=== PATIENT | female | born 1990 | race Caucasian/White ===

== ENCOUNTER 2017-01-23 19:30 | Inpatient (IN) | payer BC, MEDICAID ==
[2017-01-23 19:30] VITALS: BMI 30.9
--- NOTE | 2017-01-23 21:28 | ED PDOC ---
HPI: General Adult Time Seen by Provider: 01/23/17 20:19 Chief Complaint (Nursing): Flu-like Symptoms Chief Complaint (Provider): Numbness and Tingling in Hands and feet History Per: Patient History/Exam Limitations: no limitations Onset/Duration Of Symptoms: Other (1 month) Have you had recent travel within the past 21 days to any of the following countries: [place], [place], [place] or [place]?: No Current Symptoms Are (Timing): Still Present Additional Complaint(s): Emma Pagan, a 26 year old female, who has a past medical history of lyme disease presents to the ED complaining of numbness and tingling in her hands and feet x1 month. The patient states that she has been feeling fatigue and body aches for the past month. She further reports that in August she was diagnosed with lyme disease and was prescribed doxycycline but she had to stop taking it because of an allergic reaction the medication. The patient then states that she was started on a 20 day course of cefuroxime, but still has the symptoms that she previously mentioned. She states that she has had palpitations in the past but isn't experiencing any now. Denies headache, weakness and fever but does report having chills. Of note: Patient had a serological lyme test done in January which shows that she is still actively has the infection and IGM antibodies positive. Past Medical History Reviewed: Historical Data, Nursing Documentation, Vital Signs Vital Signs: Last Vital Signs Temp 98.9 F 01/27/17 16:29 Pulse 92 H 01/27/17 16:29 Resp 18 01/27/17 16:29 BP 102/82 01/27/17 16:29 Pulse Ox 99 01/27/17 16:29 - Medical History PMH: Anemia, Hypothyroidism Denies: Depression Other PMH: Lyme Disease - Surgical History Surgical History: No Surg Hx - Family History Family History: States: Unknown Family Hx - Immunization History Hx Tetanus Toxoid Vaccination: Yes Hx Influenza Vaccination: No Hx Pneumococcal Vaccination: No - Home Medications Home Medications: Ambulatory Orders Medication Instructions Recorded Levothyroxine [Synthroid] 75 mcg PO DAILY 09/26/15 Gabapentin [Neurontin] 100 mg PO BID #30 cap 01/27/17 valACYclovir [Valtrex] 500 mg PO BID #28 tab 01/27/17 - Allergies Allergies/Adverse Reactions: Allergies Allergy/AdvReac Type Severity Reaction Status Date / Time doxycycline Allergy Intermediate SHORTNESS Verified 01/23/17 19:43 OF BREATH Review of Systems Constitutional: Positive for: Chills. Negative for: Fever Neurological: Positive for: Numbness (Numbness in hands and feet.). Negative for: Weakness, Headache Physical Exam - Reviewed Nursing Documentation Reviewed: Yes Vital Signs Reviewed: Yes - Physical Exam Appears: Positive for: Non-toxic, No Acute Distress Head Exam: Positive for: ATRAUMATIC, NORMAL INSPECTION, NORMOCEPHALIC Skin: Positive for: Normal Color, Warm, Dry Eye Exam: Positive for: Normal appearance, EOMI, PERRL ENT: Positive for: Normal ENT Inspection Neck: Positive for: Normal, Painless ROM, Supple Cardiovascular/Chest: Positive for: Regular Rate, Rhythm, Chest Non Tender. Negative for: Tachycardia Respiratory: Positive for: Normal Breath Sounds. Negative for: Wheezing, Respiratory Distress Gastrointestinal/Abdominal: Positive for: Normal Exam, Bowel Sounds, Soft. Negative for: Tenderness, Guarding, Rebound Back: Positive for: Normal Inspection Extremity: Positive for: Normal ROM. Negative for: Tenderness, Deformity, Swelling Neurologic/Psych: Positive for: Alert, Oriented, Gait - Laboratory Results Result Diagrams: 01/24/17 06:00 01/24/17 06:00 - ECG ECG: Positive for: Interpreted By Me, Viewed By Me ECG Rhythm: Positive for: Normal QRS, Normal ST Segment, Sinus Rhythm. Negative for: ST/T Changes Rate: 95 O2 Sat by Pulse Oximetry: 100 (RA) Pulse Ox Interpretation: Normal Medical Decision Making Medical Decision Makin:19 Initial Impression: 26 year old female presenting with peripheral neuropathy with associated constitutional symptoms Differentials: Lyme disease and other conditions are also considered Initial Plan: * EKG * Comp Metabolic Panel * Folate * B12 * CBC * Erythocyte sSedimentation Rate * Blood Culture * Lyme IGG * Lyme IGM * Reevaluation * * * Discussed with Dr Gerber who recommends IV rocephine. Discussed with Dr Garcia who will see the patient. * Scribe Attestation Documented by Venecia Tony acting as a scribe for Melanie Gallardo MD. Provider Attestation All medical record entries made by the Scribe were at my direction and personally dictated by me. I have reviewed the chart and agree that the record accurately reflects my personal performance of the history, physical exam, medical decision making, and the department course for this patient. I have also personally directed, reviewed, and agree with the discharge instructions and disposition. Disposition - Clinical Impression Clinical Impression: Paresthesia - Patient ED Disposition Is Patient to be Admitted: Yes Discussed With : Zack Kennedy Doctor Will See Patient In The: Hospital Counseled Patient/Family Regarding: Studies Performed, Diagnosis - Disposition Disposition Time: 23:00 Condition: FAIR - Pt Status Changed To: Hospital Disposition Of: Inpatient - Admit Certification Admit to Inpatient:: After my assessment, the patient will require hospitalization for at least two midnights. This is because of the severity of symptoms shown, intensity of services needed, and/or the medical risk in this patient being treated as an outpatient. - POA Present On Arrival: None
[2017-01-23 21:30] LABS: BASO % 0.4 % (0.0-2.0); EOS # 0.1 K/uL (0.0-0.7); EOS % 1.5 % (0.0-4.0); HEMOGLOBIN 13.2 g/dL (12.0-16.0); LYMPH % 32.9 % (20.0-40.0); MEAN CELL VOLUME 91.4 fl (81.0-99.0); MEAN CORPUSCULAR HEMOGLOBIN 30.4 pg (27.0-31.0); MEAN CORPUSCULAR HGB CONC 33.2 g/dL (33.0-37.0); MEAN PLATELET VOLUME 7.9 fl (7.2-11.7); MONO # 0.3 K/uL (0.0-0.8); MONO % 5.5 % (0.0-10.0); NEUT # 3.6 K/uL (1.8-7.0); NEUT % 59.7 % (50.0-75.0); RBC 4.34 Mil/uL (3.80-5.20); RED CELL DISTRIBUTION WIDTH 13.4 % (11.5-14.5); WHITE BLOOD COUNT 5.9 K/uL (4.8-10.8)
[2017-01-23 22:00] LABS: ALB/GLOB RATIO 1.6 (1.0-2.1); ALBUMIN 4.8 g/dL (3.5-5.0); ALT/SGPT 25 U/L (9-52); AST/SGOT 27 U/L (14-36); BLOOD UREA NITROGEN 8 mg/dl (7-17); CALCIUM 9.8 mg/dL (8.4-10.2); GFR AFRICAN-AMERICAN > 60; GFR NON-AFRICAN AMERICAN > 60
[2017-01-23] MEDS ORDERED: cefTRIAXone (Rocephin) 1 gm Inj ONE (23:03)
[2017-01-24] MEDS ORDERED: Pneumococcal 23-Valent Vaccine IM ONE (02:51)
[2017-01-24] MEDS: Oxycodone/Acetaminophen 5/325 mg Tab PO PRN ×3 (03:07→19:47)
[2017-01-24 08:06] LABS: MEAN CELL VOLUME 91.9 fl (81.0-99.0); MEAN CORPUSCULAR HEMOGLOBIN 30.8 pg (27.0-31.0); MEAN CORPUSCULAR HGB CONC 33.5 g/dL (33.0-37.0); RBC 4.22 Mil/uL (3.80-5.20); RED CELL DISTRIBUTION WIDTH 13.5 % (11.5-14.5); WHITE BLOOD COUNT 5.8 K/uL (4.8-10.8)
[2017-01-24 08:07] LABS: ALB/GLOB RATIO 1.5 (1.0-2.1); ALBUMIN 4.2 g/dL (3.5-5.0); ALT/SGPT 26 U/L (9-52); AST/SGOT 23 U/L (14-36); BLOOD UREA NITROGEN 8 mg/dl (7-17); CALCIUM 8.9 mg/dL (8.4-10.2); GFR AFRICAN-AMERICAN > 60; GFR NON-AFRICAN AMERICAN > 60; HDL CHOLESTEROL 46 MG/DL (30-70)
[2017-01-24 08:19] LABS: LDL CHOLESTEROL 107 mg/dL (0-129)
[2017-01-24 08:24] LABS: T4 8.67 ug/dl (5.5-11.0)
[2017-01-24] MEDS: Levothyroxine 75 MCG TAB PO SCH (11:34)
--- NOTE | 2017-01-24 14:05 | CARD ---
APPROVED REPORT EKG Measurement Heart [id number] <Conclusion> Normal sinus rhythm Normal ECG
--- NOTE | 2017-01-24 17:02 | CP.PCM.HP ---
History of Present Illness - History of Present Illness History of Present Illness: CC: Numbness and Tinglin. 26y/o F, came to [facility], to be evaluated and treated for numbness and tingling in hands and feet, onset 1 month [employer] with no relief of symptoms. Worsening symptoms: Generalized body pain that started 5 month ago, fatigue, chest discomfort. Pt Dx with Lyme Disease in August 2016. Aggravated factor: Pt was initially Tx with Doxycycline with adverse effect to this medication, subsequently was started 20 days course of Cefuroxime but still having same symptoms. Pt denied: Fever, chill, headache, weakness, dizziness, CP, tachycardia, SOB, cough, sick contact, recent travel. PMHx: Hypothyroidism, Lyme disease, Anemia, Hx of light smoker. EKG showed: Normal sinus rhythm Present on Admission - Present on Admission Any Indicators Present on Admission: No Review of Systems - Constitutional Constitutional: Other (negative) - EENT Eyes: Requires Corrective Lenses Ears: Other (negative) Nose/Mouth/Throat: Other (negative) - Cardiovascular Cardiovascular: Other (negative) - Respiratory Respiratory: Other (negative) - Gastrointestinal Gastrointestinal: Other (negative) - Genitourinary Genitourinary: Other (negative) - Musculoskeletal Musculoskeletal: Arthralgias, Myalgias - Integumentary Integumentary: Other (negative) - Neurological Neurological: Numbness, Tingling - Psychiatric Psychiatric: Other (negative) - Endocrine Endocrine: Other (negative) - Hematologic/Lymphatic Hematologic: Other (negative) Past Patient History - Tetanus Immunizations Tetanus Immunization: Unknown - Past Medical History & Family History Past Medical History?: Yes Pertinent Family History: Unknown - Past Social History Smoking Status: Light Smoker < 10 Cigarettes Daily Alcohol: Occasional Drugs: Denies Home Situation {Lives}: With Family - CARDIAC Hx Cardiac Disorders: No - PULMONARY Hx Respiratory Disorders: No - NEUROLOGICAL Hx Neurological Disorder: No - HEENT Hx HEENT Problems: Yes Other/Comment: Use eyeglasses - RENAL Hx Chronic Kidney Disease: No - ENDOCRINE/METABOLIC Hx Endocrine Disorders: Yes Hx Hypothyroidism: Yes - HEMATOLOGICAL/ONCOLOGICAL Hx Blood Disorders: Yes Hx Anemia: Yes - INTEGUMENTARY Hx Dermatological Problems: No - MUSCULOSKELETAL/RHEUMATOLOGICAL Hx Musculoskeletal Disorders: No Hx Falls: No - GASTROINTESTINAL Hx Gastrointestinal Disorders: No - GENITOURINARY/GYNECOLOGICAL Hx Genitourinary Disorders: No - PSYCHIATRIC Hx Psychophysiologic Disorder: No Hx Substance Use: No - SURGICAL HISTORY Hx Surgeries: Yes Hx Orthopedic Surgery: Yes (bialt foot and ankle) - ANESTHESIA Hx Anesthesia: Yes Hx Anesthesia Reactions: No Hx Malignant Hyperthermia: No Has any member of the family had a problem w/ anesthesia?: No Meds Allergies/Adverse Reactions: Allergies Allergy/AdvReac Type Severity Reaction Status Date / Time doxycycline Allergy Intermediate SHORTNESS Verified 01/23/17 19:43 OF BREATH Physical Exam - Constitutional Appears: No Acute Distress - Head Exam Head Exam: NORMAL INSPECTION - Eye Exam Eye Exam: PERRL - ENT Exam ENT Exam: Normal Oropharynx - Neck Exam Neck exam: Positive for: Normal Inspection - Respiratory Exam Respiratory Exam: NORMAL BREATHING PATTERN - Cardiovascular Exam Cardiovascular Exam: REGULAR RHYTHM - GI/Abdominal Exam GI & Abdominal Exam: Normal Bowel Sounds, Soft - Extremities Exam Extremities exam: Positive for: tenderness (arms , legs, knees) - Back Exam Back exam: tenderness (upper back) - Neurological Exam Neurological exam: Alert, CN II-XII Intact, Oriented x3, Reflexes Normal Additional comments: Tingling sensation in fingers and feet. No focal motor deficit. - Psychiatric Exam Psychiatric exam: Normal Mood - Skin Skin Exam: Warm Results - Vital Signs Recent Vital Signs: Last Vital Signs Temp 98.4 F 01/24/17 16:52 Pulse 80 01/24/17 16:52 Resp 18 01/24/17 16:52 BP 110/69 01/24/17 16:52 Pulse Ox 97 01/24/17 16:52 reviewed J.PJose - Labs Result Diagrams: 01/24/17 06:00 01/24/17 06:00 Labs: Laboratory Results - last 24 hr 01/24/17 01/24/17 06:00 06:00 WBC 5.8 RBC 4.22 Hgb 13.0 Hct 38.8 MCV 91.9 MCH 30.8 MCHC 33.5 RDW 13.5 Plt Count 193 Sodium 139 Potassium 3.6 Chloride 102 Carbon Dioxide 26 Anion Gap 14 BUN 8 Creatinine 0.7 Est GFR ( Amer) > 60 Est GFR (Non-Af Amer) > 60 Random Glucose 78 Calcium 8.9 Total Bilirubin 0.5 AST 23 ALT 26 Alkaline Phosphatase 57 Total Protein 6.9 Albumin 4.2 Globulin 2.7 Albumin/Globulin Ratio 1.5 Triglycerides 49 Cholesterol 165 LDL Cholesterol Direct 107 HDL Cholesterol 46 Thyroxine (T4) 8.67 TSH 3rd Generation 5.16 H reviewed J.P. - EKG Data EKG comments: Reviewed J.P. Assessment & Plan (1) Post-Lyme disease syndrome Status: Acute Priority: High (2) Hypothyroidism Status: Chronic Priority: Low - Assessment and Plan (Free Text) Plan: F/U Blood C-S, Continue Rocephin, Percocet, Lyrica and rest of Tx, ID consult appreciated, f/u Neuro consult. - Date & Time Date: 01/24/17 Time: 14:30
--- NOTE | 2017-01-24 17:26 | CP.PCM.CON ---
History of Present Illness - History of Present Illness History of Present Illness: Ms. Pagan is a 26-year-old woman who was diagnosed with Lyme disease about 6 months ago and treated initially with doxycycline, but had an allergic reaction and was subsequently treated with cefuroxime for 28 days. About 6 weeks ago, she started complaining of peresthesias in both hands and feet. Sometimes the feeling is that of burning and numbness in the toes, but most of the times, it feels like "ants crawling on me". She also reports lethargy, fatigue and headaches. She denied chest pain, SOB, nausea, vomiting, change in appetite, visual changes, weakness or other associated symptoms. She continues to have joint aches and pains as well as neck pain. Review of Systems - Review of Systems All systems: reviewed and no additional remarkable complaints except Past Patient History - Tetanus Immunizations Tetanus Immunization: Unknown - Past Medical History & Family History Past Medical History?: Yes - Past Social History Smoking Status: Light Smoker < 10 Cigarettes Daily - CARDIAC Hx Cardiac Disorders: No - PULMONARY Hx Respiratory Disorders: No - NEUROLOGICAL Hx Neurological Disorder: No - HEENT Hx HEENT Problems: Yes Other/Comment: Use eyeglasses - RENAL Hx Chronic Kidney Disease: No - ENDOCRINE/METABOLIC Hx Endocrine Disorders: Yes Hx Hypothyroidism: Yes - HEMATOLOGICAL/ONCOLOGICAL Hx Blood Disorders: Yes Hx Anemia: Yes - INTEGUMENTARY Hx Dermatological Problems: No - MUSCULOSKELETAL/RHEUMATOLOGICAL Hx Musculoskeletal Disorders: No Hx Falls: No - GASTROINTESTINAL Hx Gastrointestinal Disorders: No - GENITOURINARY/GYNECOLOGICAL Hx Genitourinary Disorders: No - PSYCHIATRIC Hx Psychophysiologic Disorder: No Hx Substance Use: No - SURGICAL HISTORY Hx Surgeries: Yes Hx Orthopedic Surgery: Yes (bialt foot and ankle) - ANESTHESIA Hx Anesthesia: Yes Hx Anesthesia Reactions: No Hx Malignant Hyperthermia: No Has any member of the family had a problem w/ anesthesia?: No Meds Allergies/Adverse Reactions: Allergies Allergy/AdvReac Type Severity Reaction Status Date / Time doxycycline Allergy Intermediate SHORTNESS Verified 01/23/17 19:43 OF BREATH - Medications Medications: Current Medications Ceftriaxone Sodium 2 gm/ (Sodium Chloride) 100 mls @ 100 mls/hr IVPB DAILY [facility] Levothyroxine Sodium (Synthroid) 75 mcg PO DAILY@0630 [facility] Last Admin: 01/24/17 11:34 Dose: 75 mcg Oxycodone/Acetaminophen (Percocet 5/325 Mg Tab) 1 tab PO Q4 PRN PRN Reason: Pain, moderate (4-7) Stop: 01/27/17 02:40 Last Admin: 01/24/17 10:35 Dose: 1 tab Pregabalin (Lyrica) 50 mg PO BID [facility] Last Admin: 01/24/17 16:49 Dose: Not Given Physical Exam - Constitutional Appears: Well - Head Exam Head Exam: ATRAUMATIC, NORMAL INSPECTION, NORMOCEPHALIC - Eye Exam Eye Exam: EOMI, Normal appearance, PERRL - ENT Exam ENT Exam: Mucous Membranes Moist, Normal Exam - Respiratory Exam Respiratory Exam: Clear to Auscultation Bilateral, NORMAL BREATHING PATTERN - Cardiovascular Exam Cardiovascular Exam: REGULAR RHYTHM, +S1, +S2 - Rectal Exam Rectal Exam: Deferred - Extremities Exam Extremities exam: Positive for: normal inspection - Back Exam Back exam: NORMAL INSPECTION - Neurological Exam Neurological exam: Alert, CN II-XII Intact, Normal Gait, Oriented x3, Reflexes Normal - Expanded Neurological Exam Expanded Patient oriented to: person, place, time Cranial nerves: EOM's Intact: Normal, Facial Sensation: Normal, Gag Reflex: Normal, Nystagmus: Normal Ataxia: No Cerebellar Function: Finger to Nose: Normal, Heel to Matos: Normal Upper motor neuron: Babinski Sign: Normal Sensory exam: Lower Extremity Light Touch: Abnormal Left, Lower Extremity Pin Prick: Normal, Upper Extremity 2 Point Discrimination: Normal, Upper Extremity Light Touch: Normal, Upper Extremity Pin Prick: Normal Neuro motor strength exam: Left Upper Extremity: 5, Right Upper Extremity: 5, Left Lower Extremity: 5, Right Lower Extremity: 5 DTR: Achilles Tendon Left: 2+, Achilles Tendon Right: 2+, Bicep Left: 2+, Bicep Right: 2+, Brachioradialis Left: 2+, Brachioradialis Right: 2+, Patellar Left: 2 +, Patellar Right: 2+, Tricep Left: 2+, Tricep Right: 2+ - Psychiatric Exam Psychiatric exam: Normal Affect, Normal Mood - Skin Skin Exam: Dry, Intact, Normal Color, Warm Results - Vital Signs Recent Vital Signs: Last Vital Signs Temp 98.4 F 01/24/17 16:52 Pulse 80 01/24/17 16:52 Resp 18 01/24/17 16:52 BP 110/69 01/24/17 16:52 Pulse Ox 97 01/24/17 16:52 - Labs Result Diagrams: 01/24/17 06:00 01/24/17 06:00 Labs: Laboratory Results - last 24 hr 01/24/17 01/24/17 06:00 06:00 WBC 5.8 RBC 4.22 Hgb 13.0 Hct 38.8 MCV 91.9 MCH 30.8 MCHC 33.5 RDW 13.5 Plt Count 193 Sodium 139 Potassium 3.6 Chloride 102 Carbon Dioxide 26 Anion Gap 14 BUN 8 Creatinine 0.7 Est GFR ( Amer) > 60 Est GFR (Non-Af Amer) > 60 Random Glucose 78 Calcium 8.9 Total Bilirubin 0.5 AST 23 ALT 26 Alkaline Phosphatase 57 Total Protein 6.9 Albumin 4.2 Globulin 2.7 Albumin/Globulin Ratio 1.5 Triglycerides 49 Cholesterol 165 LDL Cholesterol Direct 107 HDL Cholesterol 46 Thyroxine (T4) 8.67 TSH 3rd Generation 5.16 H Assessment & Plan (1) Post-Lyme disease syndrome Assessment and Plan: The symptoms could be due to this condition, but may also be due to continued or untreated infection. I recommend starting amoxicillin 500 mg TID for two weeks. For the paresthesias, we may try a lower dose of gabapentin and start with 100 mg TID. I would also recommend obtaining a Western Blot to confirm since the IgM was recently positive for Lyme. Thank you. Status: Acute Priority: High
[2017-01-24 19:31] LABS: FOLATE > 20.0 ng/mL
--- NOTE | 2017-01-24 19:34 | CON ---
DATE: 01/24/2017 This is a case of possible Lyme disease or some possible immune complex disease. HISTORY OF PRESENT ILLNESS: The patient is a 26-year-old female who stated she had migratory arthralgias, muscle pain, joint pain, some feeling of fatigue right after [place] time. She went to see her primary care physician and apparently was diagnosed via clinical symptoms and by laboratory with Lyme disease. She was treated at that time with doxycycline apparently for 7 days and she subsequently HAD A REACTION TO TH DOXYCYCLINE and this was stopped. She did mention though that while she was taking the doxycycline she did feel better. She was then placed on a cefuroxime and the feeling of body aches and fatigue and joint pain returned. While she took the medication there was no improvement in any of her symptoms.She completed a 28 or 30 day course of cefuroxime and she stated that she felt that no improvement and at this point she came to the hospital because she is feeling all the previously discussed symptoms all at once and she also has tingling from her mid-calf to her feet bilaterally and also has tingling in her hands. She also gives a history of shortness of breath and some palpitations. She does not have headache, but she did say, as previously mentioned, did have chills. She says she never took her temperature. Apparently she was told by her physician that she had a IgM done for her Lyme disease and it was still positive in January. These have to be reviewed, as Lyme testing is not necessarily the most precise testing. I do not know if she had a Western blot done and have ordered PHYSICAL EXAMINATION: GENERAL: She is alert, cooperative, and oriented in time and place. She does seem quite depressed and we discussed some of the reasons for her depression. HEENT: Within normal limits. NECK: Supple. There is no significant adenopathy. LUNGS: Clear. There is no abnormal breath sound, including wheezing. HEART: Regular sinus rhythm. ABDOMEN: Soft, positive bowel sounds. No organomegaly. EXTREMITIES: No CCE, but she did state that she felt a "weird" feeling as she stated when I examined her feet and hands. There seems to be no loss of motor strength. I think that possibly the feeling is neuropathy, when in hands and feet obvious neuropathy. LABORATORY DATA: Show a WBC of 5.8, hemoglobin of 13, a normal differential, platelet count is normal. The chemistry shows the only abnormal results is a TSH, 3rd generation which is 5.16. IMPRESSION: This may be Lyme disease, but possibly not completely treated. Other autoimmune diseases /infectious diseases have to be ruled out; chronic Swati-Doe Virus is consideration, rheumatoid disease is consideration. I will start her on Rocephin 2 grams IV piggyback once a day q. 24 hours and will consider treatment based on neurological consult and discussion with the neurologist and have ordered an LONNY, EBV profile, quantitative immunoglobulins and a Lyme disease Western blot, will also order an echocardiogram. Donell Gerber MD cc: [id number] TT: 01/24/2017 19:33:53 Confirmation # [id number] Dictation # [id number] MTDD
[2017-01-25] MEDS ORDERED: Levothyroxine 75 MCG TAB PO SCH (06:30)
[2017-01-25] MEDS: Levothyroxine 75 MCG TAB PO SCH (06:48)
[2017-01-25] MEDS: cefTRIAXone 2 GM in Sodium Chloride 0.9% 100 ML IVPB SCH (09:15)
[2017-01-25] MEDS: Oxycodone/Acetaminophen 5/325 mg Tab PO PRN ×2 (09:26→22:57)
[2017-01-25 15:18] LABS: IMMUNOGLOBULIN G 786.5 mg/dL (700.0-1600.0)
[2017-01-25 15:19] LABS: IMMUNOGLOBULIN A 142.1 mg/dL (70.0-400.0)
--- NOTE | 2017-01-25 19:57 | CP.PCM.PN ---
Subjective - Date & Time of Evaluation Date of Evaluation: 01/25/17 Time of Evaluation: 11:00 - Subjective Subjective: F/U Post-Lyme Disease. Pt c/o of pain in L knee and foot, no pain in R knee today, also pain in the open back in both trapezius muscles extended to the shoulders. Objective - Vital Signs/Intake and Output Vital Signs (last 24 hours): Temp Pulse Resp BP Pulse Ox 97.5 F L 70 18 100/68 97 01/25/17 16:22 01/25/17 16:22 01/25/17 16:22 01/25/17 16:22 01/25/17 16:22 - Medications Medications: Current Medications Gabapentin (Neurontin) 100 mg PO BID [facility] Last Admin: 01/25/17 17:07 Dose: 100 mg Ceftriaxone Sodium 2 gm/ (Sodium Chloride) 100 mls @ 100 mls/hr IVPB DAILY [facility] Last Admin: 01/25/17 09:15 Dose: 100 mls/hr Levothyroxine Sodium (Synthroid) 75 mcg PO DAILY@0630 [facility] Last Admin: 01/25/17 06:48 Dose: 75 mcg Oxycodone/Acetaminophen (Percocet 5/325 Mg Tab) 1 tab PO Q4 PRN PRN Reason: Pain, moderate (4-7) Stop: 01/27/17 02:40 Last Admin: 01/25/17 09:26 Dose: 1 tab - Labs Labs: 01/24/17 06:00 01/24/17 06:00 - Constitutional Appears: No Acute Distress - Head Exam Head Exam: NORMAL INSPECTION - Eye Exam Eye Exam: PERRL - ENT Exam ENT Exam: Normal Oropharynx - Neck Exam Neck Exam: Normal Inspection - Respiratory Exam Respiratory Exam: NORMAL BREATHING PATTERN - Cardiovascular Exam Cardiovascular Exam: REGULAR RHYTHM - GI/Abdominal Exam GI & Abdominal Exam: Soft, Normal Bowel Sounds - Extremities Exam Extremities Exam: Tenderness (Arms, Legs, Knees.) - Back Exam Back Exam: tenderness (Upper back and R-L trapezius muscles) - Neurological Exam Neurological Exam: Alert, CN II-XII Intact, Oriented x3 (Reflexes normal.) Additional comments: Tingling sensation in fingers, R-L hands and toes. No focal motor deficit. - Psychiatric Exam Psychiatric exam: Normal Mood - Skin Skin Exam: Warm Assessment and Plan (1) Post-Lyme disease syndrome Status: Acute (2) Hypothyroidism Status: Chronic - Assessment and Plan (Free Text) Plan: Pt did not want to take Lyrica, start Gabapentin low dose 100 bid. continue Rocephin and rest of Tx.
[2017-01-26] MEDS: Levothyroxine 75 MCG TAB PO SCH (06:25)
[2017-01-26] MEDS: cefTRIAXone 2 GM in Sodium Chloride 0.9% 100 ML IVPB SCH (08:26)
[2017-01-26] MEDS: Oxycodone/Acetaminophen 5/325 mg Tab PO PRN ×3 (11:28→23:00)
--- NOTE | 2017-01-26 17:04 | CP.PCM.PN ---
Subjective - Date & Time of Evaluation Date of Evaluation: 01/26/17 Time of Evaluation: 17:00 - Subjective Subjective: I D NOTE AWAITING FLLOWUP LYME STUDIES INCLUDING IGM AND WESTERN BLOT ebv studies are suggestive of recent infection or reoccurrence as titers are quite high PATIENT EXAMINED,AND NO SIGNIFICANT PHYSICAL OR CLINICAL CHANGES AWAIT ECHOCARDIOGRAM RESULTS PATIENT SHOULD NOT BE DISCHARGED UNTIL WE ARE SURE OF DIAGNOSIS AND TREAMENT WE MAY NEED TO SET UP IV TREATMENT AT HOME HAVE DISCUSSED C Objective - Vital Signs/Intake and Output Vital Signs (last 24 hours): Temp Pulse Resp BP Pulse Ox 98.3 F 69 20 117/73 96 01/26/17 16:06 01/26/17 16:06 01/26/17 16:06 01/26/17 16:06 01/26/17 16:06 - Medications Medications: Current Medications Gabapentin (Neurontin) 100 mg PO BID [facility] Last Admin: 01/26/17 08:25 Dose: 100 mg Ceftriaxone Sodium 2 gm/ (Sodium Chloride) 100 mls @ 100 mls/hr IVPB DAILY [facility] Last Admin: 01/26/17 08:26 Dose: 100 mls/hr Levothyroxine Sodium (Synthroid) 75 mcg PO DAILY@0630 [facility] Last Admin: 01/26/17 06:25 Dose: 75 mcg Oxycodone/Acetaminophen (Percocet 5/325 Mg Tab) 1 tab PO Q4 PRN PRN Reason: Pain, moderate (4-7) Stop: 01/27/17 02:40 Last Admin: 01/26/17 15:41 Dose: 1 tab - Labs Labs: 01/24/17 06:00 01/24/17 06:00
--- NOTE | 2017-01-26 17:29 | CP.PCM.PN ---
Subjective - Date & Time of Evaluation Date of Evaluation: 01/26/17 Time of Evaluation: 11:00 - Subjective Subjective: F/U Post Lyme Disease. Pt c/o of pain in open back, trapezius muscles from shoulders to lower spine, also c/o of foot pain, tingling sensations in fingers and toes. Objective - Vital Signs/Intake and Output Vital Signs (last 24 hours): Temp Pulse Resp BP Pulse Ox 98.3 F 69 20 117/73 96 01/26/17 16:06 01/26/17 16:06 01/26/17 16:06 01/26/17 16:06 01/26/17 16:06 - Medications Medications: Current Medications Gabapentin (Neurontin) 100 mg PO BID [facility] Last Admin: 01/26/17 17:11 Dose: 100 mg Ceftriaxone Sodium 2 gm/ (Sodium Chloride) 100 mls @ 100 mls/hr IVPB DAILY [facility] Last Admin: 01/26/17 08:26 Dose: 100 mls/hr Levothyroxine Sodium (Synthroid) 75 mcg PO DAILY@0630 [facility] Last Admin: 01/26/17 06:25 Dose: 75 mcg Oxycodone/Acetaminophen (Percocet 5/325 Mg Tab) 1 tab PO Q4 PRN PRN Reason: Pain, moderate (4-7) Stop: 01/27/17 02:40 Last Admin: 01/26/17 15:41 Dose: 1 tab - Labs Labs: 01/24/17 06:00 01/24/17 06:00 - Constitutional Appears: No Acute Distress - Head Exam Head Exam: NORMAL INSPECTION - Eye Exam Eye Exam: PERRL - ENT Exam ENT Exam: Normal Oropharynx - Neck Exam Neck Exam: Normal Inspection - Respiratory Exam Respiratory Exam: NORMAL BREATHING PATTERN - Cardiovascular Exam Cardiovascular Exam: REGULAR RHYTHM - GI/Abdominal Exam GI & Abdominal Exam: Soft, Normal Bowel Sounds - Extremities Exam Extremities Exam: Tenderness (Arms, legs, knees.) - Back Exam Back Exam: tenderness (upper back and R-L trapezius muscles.) - Neurological Exam Neurological Exam: Alert, CN II-XII Intact, Oriented x3 Additional comments: Tingling sensation in fingers, R-L hands and toes, reflex normal, no focal motor deficit. - Psychiatric Exam Psychiatric exam: Normal Mood - Skin Skin Exam: Warm Assessment and Plan (1) Post-Lyme disease syndrome Status: Acute (2) Hypothyroidism Status: Chronic - Assessment and Plan (Free Text) Plan: Evaluated by PT independent, f/u ID.
--- NOTE | 2017-01-26 19:13 | CARD ---
APPROVED REPORT EXAM: Two-dimensional and M-mode echocardiogram with Doppler and color Doppler. Other Information Quality : GoodRhythm : NSR INDICATION Chest Pain 2D DIMENSIONS IVSd0.88 (0.7-1.1cm)LVDd4.86 (3.9-5.9cm) LVOT Diameter2.07 (1.8-2.4cm)PWd0.69 (0.7-1.1cm) IVSs1.18 (0.8-1.2cm)LVDs3.17 (2.5-4.0cm) FS (%) 34.8 %PWs1.13 (0.8-1.2cm) M-Mode DIMENSIONS Left Atrium (MM)3.25 (2.5-4.0cm)IVSd0.85 (0.7-1.1cm) Aortic Root2.40 (2.2-3.7cm)LVDd4.80 (4.0-5.6cm) Aortic Cusp Exc.2.04 (1.5-2.0cm)PWd0.80 (0.7-1.1cm) IVSs1.10 cmFS (%) 30 % LVDs3.34 (2.0-3.8cm)PWs1.10 cm Mitral Valve E/A ratio0.0 TDI E/Lateral E'0.0E/Medial E'0.0 Pulmonary Valve PV Peak Iojqtpmd15.0cm/s LEFT VENTRICLE The left ventricle is normal size. There is normal left ventricular wall thickness. The left ventricular function is normal. The left ventricular ejection fraction is 55% There is normal LV segmental wall motion. The left ventricular diastolic function is normal. No left ventricle thrombus noted on this study. There is no ventricular septal defect visualized. There is no left ventricular aneurysm. There is no mass noted in the left ventricle. RIGHT VENTRICLE The right ventricle is normal size. There is normal right ventricular wall thickness. The right ventricular systolic function is normal. ATRIA The left atrium size is normal. The right atrium size is normal. The interatrial septum is intact with no evidence for an atrial septal defect. AORTIC VALVE The aortic valve is normal in structure and function. No aortic regurgitation is present. There is no aortic valvular stenosis. There is no aortic valvular vegetation. MITRAL VALVE The mitral valve is normal in structure and function. There is no evidence of mitral valve prolapse. There is no mitral valve stenosis. There is no mitral valve regurgitation noted. TRICUSPID VALVE The tricuspid valve is normal in structure and function. There is no tricuspid valve regurgitation noted. There is no tricuspid valve prolapse or vegetation. There is no tricuspid valve stenosis. PULMONIC VALVE The pulmonary valve is normal in structure and function. There is no pulmonic valvular regurgitation. There is no pulmonic valvular stenosis. GREAT VESSELS The aortic root is normal in size. The ascending aorta is normal in size. The IVC is normal in size and collapses >50% with inspiration. PERICARDIAL EFFUSION The pericardium appears normal. There is no pleural effusion. <Conclusion> Normal Echocardiogram
[2017-01-27] MEDS: Levothyroxine 75 MCG TAB PO SCH (06:36)
[2017-01-27] MEDS ORDERED: Oxycodone/Acetaminophen 5/325 mg Tab PO PRN (08:49)
[2017-01-27] MEDS: cefTRIAXone 2 GM in Sodium Chloride 0.9% 100 ML IVPB SCH (08:50)
--- NOTE | 2017-01-27 11:40 | CP.PCM.CON ---
History of Present Illness - History of Present Illness History of Present Illness: 26-year-old woman who was diagnosed with Lyme disease about 6 months ago and treated initially with doxycycline, but had an allergic reaction and was subsequently treated with cefuroxime for 28 days. About 6 weeks ago, she started complaining of peresthesias in both hands and feet. Sometimes the feeling is that of burning and numbness in the toes, but most of the times, it feels like "ants crawling on me". She also reports lethargy, fatigue and headaches. She denied chest pain, SOB, nausea, vomiting, change in appetite, visual changes, weakness or other associated symptoms. She continues to have joint aches and pains as well as neck pain. recent Lyme titers negative and ewas treated previously Has strongly + convalescent titers for EBV improving on Gabapentin blood cultures neg so far Review of Systems - Constitutional Constitutional: As Per HPI, Anorexia, Fever, Headache, Malaise - EENT Eyes: absent: As Per HPI, Blind Spots, Blurred Vision, Change in Vision, Decreased Night Vision, Diplopia, Discharge, Dry Eye, Exophthalmos, Floaters, Irritation, Itchy Eyes, Loss of Peripheral Vision, Pain, Photophobia, Requires Corrective Lenses, Sees Flashes, Spots in Vision, Tunnel Vision, Other Visual Disturbances, Loss of Vision, Other Ears: absent: As Per HPI, Decreased Hearing, Ear Discharge, Ear Pain, Tinnitus, Abnormal Hearing, Disequilibrium, Dizziness, Other Nose/Mouth/Throat: absent: As Per HPI, Epistaxis, Nasal Congestion, Nasal Discharge, Nasal Obstruction, Nasal Trauma, Nose Pain, Post Nasal Drip, Sinus Pain, Sinus Pressure, Bleeding Gums, Change in Voice, Dental Pain, Dry Mouth, Dysphagia, Halitosis, Hoarsness, Lip Swelling, Mouth Lesions, Mouth Pain, Odynophagia, Sore Throat, Throat Swelling, Tongue Swelling, Facial Pain, Neck Pain, Neck Mass, Other - Breasts Breasts: absent: As Per HPI, Change in Shape, Mass, Pain, Nipple Discharge, Nipple Inversion, Skin Changes, Swelling, Other - Cardiovascular Cardiovascular: absent: As Per HPI, Acrocyanosis, Chest Pain, Chest Pain at Rest , Chest Pain with Activity, Claudication, Diaphoresis, Dyspnea, Dyspnea on Exertion, Edema, Irregular Heart Rhythm, Pain Radiating to Arm/Neck/Jaw, Leg Edema, Leg Ulcers, Lightheadedness, Orthopnea, Palpitations, Paroxysmal Nocturnal Dyspnea, Pedal Edema, Radiating Pain, Rapid Heart Rate, Slow Heart Rate, Syncope, Other - Respiratory Respiratory: absent: As Per HPI, Cough, Dyspnea, Hemoptysis, Dyspnea on Exertion , Wheezing, Snoring, Stridor, Pain on Inspiration, Chest Congestion, Excessive Mucous Production, Change in Mucous Color, Pain with Coughing, Other - Gastrointestinal Gastrointestinal: absent: As Per HPI, Abdominal Pain, Belching, Bloating, Change in Bowel Habits, Change in Stool Character, Coffee Ground Emesis, Constipation, Cramping, Diarrhea, Dyspepsia, Dysphagia, Early Satiety, Excessive Flatus, Fecal Incontinence, Heartburn, Hematemesis, Hematochezia, Loose Stools, Melena, Nausea, Odynophagia, Temesmus, Vomiting, Other - Genitourinary Genitourinary: absent: As Per HPI, Change in Urinary Stream, Difficulty Urinating, Dysuria, Flank Pain, Hematuria, Pyuria, Nocturia, Urinary Incontinence, Urinary Frequency, Urinary Hesitance, Urinary Urgency, Voiding Freq/Small Amts, Freq UTI, Hx Renal/Bladder Calculi, Hx /Renal Surgery, Bladder Distension, Other - Reproductive: Female Reproductive:Female: absent: As Per HPI, Amenorrhea, Amenorrhea/ Control, Currently Menstual, Cycle <21 Days, Cycle >35 Days, Cycle Variable, Menses 1-7 Days, Menses >/= 8 Days, Menses Variable, Cycle > 4 Weeks Between, No Menses for 6 Months, Heavy Menses, Light Menses, Normal Menses, Spotting Between Cycles , S/P Hysterectomy, Menopausal, Post Menopausal, Premenarche, Abnormal Vaginal Bleeding, Dysmenorrhea, Dyspareunia, Genital Lesions, Genital Pruritis, Pelvic Pain, Prolapse Symptoms, Sexual Dysfunction, Vaginal Discharge, Vaginal Dryness , Vaginal Odor, Vaginal Pruritis, Other - Menstruation Menstruation: absent: As Per HPI, Amenorrhea, Amenorrhea/ Control, Currently Menstual, Cycle <21 Days, Cycle >35 Days, Cycle Variable, Menses 1-7 Days, Menses >/= 8 Days, Menses Variable, Cycle > 4 Weeks Between, No Menses for 6 Months, Heavy Menses, Light Menses, Normal Menses, Spotting Between Cycles , S/P Hysterectomy, Menopausal, Post Menopausal, Premenarche, Abnormal Vaginal Bleeding, Dysmenorrhea, Other - Musculoskeletal Musculoskeletal: absent: As Per HPI, Abnormal Gait, Arthralgias, Atrophy, Back Pain, Deformity, Joint Swelling, Limited Range of Motion, Loss of Height, Muscle Cramps, Muscle Weakness, Myalgias, Neck Pain, Numbness, Radiating Pain into Limb, Stiffness, Tingling, Other - Integumentary Integumentary: absent: As Per HPI, Acne, Alopecia, Bleeding Lesions, Change in Hair, Change in Nails, Change in Pigmentation, Changing Lesions, Dry Skin, Erythema, Furuncle, Hirsutism, Lesions, New Lesions, Non-Healing Lesions, Photosensitivity, Pruritus, Rash, Skin Pain, Skin Ulcer, Sores, Striae, Swelling , Unusual Bruising, Wounds, Jaundice, Other - Neurological Neurological: As Per HPI - Psychiatric Psychiatric: absent: As Per HPI, Abnormal Sleep Pattern, Anhedonia, Anxiety, Auditory Hallucinations, Behavioral Changes, Change in Appetite, Change in Libido, Confusion, Depression, Difficulty Concentrating, Hallucinations, Homicidal Ideation, Hopelessness, Irritability, Memory Loss, Mood Swings, Panic Attacks, Paranoia, Suicidal Ideation, Visual Hallucinations, Tactile Hallucinations, Other - Endocrine Endocrine: absent: As Per HPI, Change in Body Appearance, Change in Libido, Cold Intolorance, Deepening of Voice, Excessive Sweating, Fatigue, Flushing, Heat Intolorance, Increase in Ring/Shoe/Hat Size, Palpitations, Polydipsia, Polyphagia, Polyuria, Other - Hematologic/Lymphatic Hematologic: absent: As Per HPI, Easy Bleeding, Easy Bruising, Lymphadenopathy, Other Past Patient History - Tetanus Immunizations Tetanus Immunization: Unknown - Past Medical History & Family History Past Medical History?: Yes - Past Social History Smoking Status: Light Smoker < 10 Cigarettes Daily Alcohol: Occasional Drugs: Denies Home Situation {Lives}: With Family - CARDIAC Hx Cardiac Disorders: No - PULMONARY Hx Respiratory Disorders: No - NEUROLOGICAL Hx Neurological Disorder: No - HEENT Hx HEENT Problems: Yes Other/Comment: Use eyeglasses - RENAL Hx Chronic Kidney Disease: No - ENDOCRINE/METABOLIC Hx Endocrine Disorders: Yes Hx Hypothyroidism: Yes - HEMATOLOGICAL/ONCOLOGICAL Hx Blood Disorders: Yes Hx Anemia: Yes - INTEGUMENTARY Hx Dermatological Problems: No - MUSCULOSKELETAL/RHEUMATOLOGICAL Hx Musculoskeletal Disorders: No Hx Falls: No - GASTROINTESTINAL Hx Gastrointestinal Disorders: No - GENITOURINARY/GYNECOLOGICAL Hx Genitourinary Disorders: No - PSYCHIATRIC Hx Psychophysiologic Disorder: No Hx Substance Use: No - SURGICAL HISTORY Hx Surgeries: Yes Hx Orthopedic Surgery: Yes (bialt foot and ankle) - ANESTHESIA Hx Anesthesia: Yes Hx Anesthesia Reactions: No Hx Malignant Hyperthermia: No Has any member of the family had a problem w/ anesthesia?: No Meds Allergies/Adverse Reactions: Allergies Allergy/AdvReac Type Severity Reaction Status Date / Time doxycycline Allergy Intermediate SHORTNESS Verified 01/23/17 19:43 OF BREATH - Medications Medications: Current Medications Gabapentin (Neurontin) 100 mg PO BID [facility] Last Admin: 01/27/17 08:50 Dose: 100 mg Ceftriaxone Sodium 2 gm/ (Sodium Chloride) 100 mls @ 100 mls/hr IVPB DAILY [facility] Last Admin: 01/27/17 08:50 Dose: 100 mls/hr Levothyroxine Sodium (Synthroid) 75 mcg PO DAILY@0630 [facility] Last Admin: 01/27/17 06:36 Dose: 75 mcg Oxycodone/Acetaminophen (Percocet 5/325 Mg Tab) 1 tab PO Q4 PRN PRN Reason: Pain, moderate (4-7) Stop: 01/30/17 08:50 Last Admin: 01/27/17 08:49 Dose: 1 tab Physical Exam - Constitutional Appears: Non-toxic - Head Exam Head Exam: ATRAUMATIC, NORMAL INSPECTION, NORMOCEPHALIC - Eye Exam Eye Exam: EOMI, PERRL. absent: Scleral icterus - ENT Exam ENT Exam: Mucous Membranes Dry, Normal External Ear Exam - Neck Exam Neck exam: Negative for: Lymphadenopathy - Respiratory Exam Respiratory Exam: Clear to Auscultation Bilateral - Cardiovascular Exam Cardiovascular Exam: REGULAR RHYTHM, +S1, +S2 - GI/Abdominal Exam GI & Abdominal Exam: Diminished Bowel Sounds, Soft. absent: Tenderness - Rectal Exam Rectal Exam: Deferred - Exam Exam: NORMAL INSPECTION - Extremities Exam Extremities exam: Positive for: pedal pulses present. Negative for: calf tenderness, pedal edema, tenderness - Back Exam Back exam: absent: CVA tenderness (L), CVA tenderness (R) - Neurological Exam Neurological exam: Alert, CN II-XII Intact, Oriented x3, Reflexes Normal - Psychiatric Exam Psychiatric exam: Normal Mood - Skin Skin Exam: Dry Results - Vital Signs Recent Vital Signs: Last Vital Signs Temp 98.5 F 01/27/17 09:00 Pulse 71 01/27/17 08:24 Resp 20 01/27/17 08:24 BP 111/75 01/27/17 08:24 Pulse Ox 98 01/27/17 08:24 - Labs Result Diagrams: 01/24/17 06:00 01/24/17 06:00 Labs: Laboratory Results - last 24 hr 01/23/17 01/25/17 Unknown 07:00 IgE 65 LONNY Screen Negative LONNY Titer TEST NOT PERFORMED LONNY Titer 2 TEST NOT PERFORMED LONNY Pattern TEST NOT PERFORMED LONNY Pattern 2 TEST NOT PERFORMED Lyme Disease Screen <0.90 Lyme Disease IgG Ab (IFA) Negative EBV Capsid Ag IgG Ab 362.00 H EBV Capsid Ag IgM Ab 116.00 H EBV Nuclear Antigen Ab >600.00 H EBV Interpretation See note Assessment & Plan (1) Post-Lyme disease syndrome Status: Acute Priority: High (2) Hypothyroidism Status: Chronic Priority: Low - Assessment and Plan (Free Text) Assessment: likely EBV ?mono recurrence treated for Lyme 2016- old serologies not available agree with symptomatic rx needs out pt MRI/ NCS/ EMG's will order HIV test no current indication for IV antibiotics consider LP if symptoms persist
--- NOTE | 2017-01-27 13:16 | CP.PCM.PN ---
Subjective - Date & Time of Evaluation Date of Evaluation: 01/27/17 Time of Evaluation: 13:10 - Subjective Subjective: I D NOTE LYME SEROLOGY AND WESTERN BLOT ARE NEGATIVE APPEARS TO BE REOCCURRENCE OF MONO/EBV HAVE ASKED FOR SECOND ID OPINION C AND HAVE DISCUSSED C HIM WILL TREAT EBV DISEASE C VALTREX 500MG PO BID X INITIALLY 2 WEEKS Objective - Vital Signs/Intake and Output Vital Signs (last 24 hours): Temp Pulse Resp BP Pulse Ox 98.5 F 71 20 111/75 98 01/27/17 09:00 01/27/17 08:24 01/27/17 08:24 01/27/17 08:24 01/27/17 08:24 - Medications Medications: Current Medications Gabapentin (Neurontin) 100 mg PO BID [facility] Last Admin: 01/27/17 08:50 Dose: 100 mg Ceftriaxone Sodium 2 gm/ (Sodium Chloride) 100 mls @ 100 mls/hr IVPB DAILY [facility] Last Admin: 01/27/17 08:50 Dose: 100 mls/hr Levothyroxine Sodium (Synthroid) 75 mcg PO DAILY@0630 [facility] Last Admin: 01/27/17 06:36 Dose: 75 mcg Oxycodone/Acetaminophen (Percocet 5/325 Mg Tab) 1 tab PO Q4 PRN PRN Reason: Pain, moderate (4-7) Stop: 01/30/17 08:50 Last Admin: 01/27/17 08:49 Dose: 1 tab - Labs Labs: 01/24/17 06:00 01/24/17 06:00
[2017-01-27 16:31] VITALS: BP 102/82; RESP 18; TEMP 98.9
[2017-01-27 18:58] VITALS: PULSE 95; O2SAT 100
--- NOTE | 2017-01-27 23:01 | CP.PCM.PN ---
Subjective - Date & Time of Evaluation Date of Evaluation: 01/27/17 Time of Evaluation: 08:15 - Subjective Subjective: F/U Post Lyme disease. Objective - Vital Signs/Intake and Output Vital Signs (last 24 hours): Temp Pulse Resp BP Pulse Ox 98.9 F 95 H 18 102/82 100 01/27/17 16:29 01/27/17 18:58 01/27/17 16:29 01/27/17 16:29 01/27/17 18:58 - Labs Labs: 01/24/17 06:00 01/24/17 06:00 - Constitutional Appears: No Acute Distress - Head Exam Head Exam: NORMAL INSPECTION - Eye Exam Eye Exam: PERRL - ENT Exam ENT Exam: Normal Oropharynx - Neck Exam Neck Exam: Normal Inspection - Respiratory Exam Respiratory Exam: NORMAL BREATHING PATTERN - Cardiovascular Exam Cardiovascular Exam: REGULAR RHYTHM - GI/Abdominal Exam GI & Abdominal Exam: Soft, Normal Bowel Sounds - Extremities Exam Extremities Exam: Tenderness (Arms, legs, knees.) - Back Exam Back Exam: tenderness (upper back and R-L trapezius muscles.) - Neurological Exam Neurological Exam: Alert, CN II-XII Intact, Oriented x3 Additional comments: Tingling sensation in fingers, R-L hands and toes, reflex normal, no focal motor deficit. - Psychiatric Exam Psychiatric exam: Normal Mood - Skin Skin Exam: Warm Assessment and Plan (1) Post-Lyme disease syndrome Status: Acute (2) Hypothyroidism Status: Chronic - Assessment and Plan (Free Text) Plan: Patient in improved and stable condition to be discharged.
--- NOTE | 2017-01-29 15:15 | PQF GENQUE ---
Dr. Kennedy progress note dated 01/27 by ID documented that lyme serology and western blot are negative. After study what is the principal diagnosis for this case? Thank you This form is a permanent part of the medical record Clarification of your documentation is requested to better reflect the severity of illness and intensity of treatment of your patient. Indicators present [] Specify: [] [] Specify: [] [] Specify: [] [] Specify: [] Location in the medical record that reflects the above clinical findings: [] Treatment Provided: [] PHYSICIAN'S RESPONSE Based on your medical judgment of the clinical indicators outlined above please clarify the following: [] Practitioner response [] If unable to determine, please check the box, sign and date. Present On Admission (POA) Indicator: [] Present at the time of admission [] Not present at the time of admission [] Clinically Undetermined In responding to this query, please exercise your independent professional judgment. The fact that a question is asked does not imply that any particular answer is desired or expected. Thank you for your clarification on this documentation. If you have any questions please call:[ ] * Thank you, [ ]Benita Doss computer applications developer JUAN
--- NOTE | 2017-02-16 16:27 | CP.PCM.DIS ---
Provider - Provider Date of Admission: 01/23/17 23:04 Attending physician: Zack Kennedy MD Consults: Neurology and ID. Time Spent in preparation of Discharge (in minutes): 25 Diagnosis - Discharge Diagnosis (1) Post-Lyme disease syndrome Status: Acute Priority: High (2) Hypothyroidism Status: Chronic Priority: Low Hospital Course - Lab Results Lab Results: Most Recent Lab Values WBC 5.8 K/uL (4.8-10.8) 01/24/17 06:00 RBC 4.22 Mil/uL (3.80-5.20) 01/24/17 06:00 Hgb 13.0 g/dL (12.0-16.0) 01/24/17 06:00 Hct 38.8 % (34.0-47.0) 01/24/17 06:00 MCV 91.9 fl (81.0-99.0) 01/24/17 06:00 MCH 30.8 pg (27.0-31.0) 01/24/17 06:00 MCHC 33.5 g/dL (33.0-37.0) 01/24/17 06:00 RDW 13.5 % (11.5-14.5) 01/24/17 06:00 Plt Count 193 K/uL (130-400) 01/24/17 06:00 MPV 7.9 fl (7.2-11.7) 01/23/17 20:55 Neut % (Auto) 59.7 % (50.0-75.0) 01/23/17 20:55 Lymph % (Auto) 32.9 % (20.0-40.0) 01/23/17 20:55 [place] % (Auto) 5.5 % (0.0-10.0) 01/23/17 20:55 Eos % (Auto) 1.5 % (0.0-4.0) 01/23/17 20:55 Baso % (Auto) 0.4 % (0.0-2.0) 01/23/17 20:55 Neut # 3.6 K/uL (1.8-7.0) 01/23/17 20:55 Lymph # 2.0 K/uL (1.0-4.3) 01/23/17 20:55 [place] # 0.3 K/uL (0.0-0.8) 01/23/17 20:55 Eos # 0.1 K/uL (0.0-0.7) 01/23/17 20:55 Baso # 0.0 K/uL (0.0-0.2) 01/23/17 20:55 ESR 9 mm/hr (0-20) 01/23/17 20:55 Sodium 139 mmol/l (132-148) 01/24/17 06:00 Potassium 3.6 MMOL/L (3.6-5.0) 01/24/17 06:00 Chloride 102 mmol/L (98-107) 01/24/17 06:00 Carbon Dioxide 26 mmol/L (22-30) 01/24/17 06:00 Anion Gap 14 (10-20) 01/24/17 06:00 BUN 8 mg/dl (7-17) 01/24/17 06:00 Creatinine 0.7 mg/dL (0.7-1.2) 01/24/17 06:00 Est GFR ( Amer) > 60 01/24/17 06:00 Est GFR (Non-Af Amer) > 60 01/24/17 06:00 Random Glucose 78 mg/dL (65-105) 01/24/17 06:00 Calcium 8.9 mg/dL (8.4-10.2) 01/24/17 06:00 Total Bilirubin 0.5 mg/dl (0.2-1.3) 01/24/17 06:00 AST 23 U/L (14-36) 01/24/17 06:00 ALT 26 U/L (9-52) 01/24/17 06:00 Alkaline Phosphatase 57 U/L (38-126) 01/24/17 06:00 Total Protein 6.9 G/DL (6.3-8.2) 01/24/17 06:00 Albumin 4.2 g/dL (3.5-5.0) 01/24/17 06:00 Globulin 2.7 gm/dL (2.2-3.9) 01/24/17 06:00 Albumin/Globulin Ratio 1.5 (1.0-2.1) 01/24/17 06:00 Triglycerides 49 mg/DL (0-149) 01/24/17 06:00 Cholesterol 165 mg/dL (0-199) 01/24/17 06:00 LDL Cholesterol Direct 107 mg/dL (0-129) 01/24/17 06:00 HDL Cholesterol 46 MG/DL (30-70) 01/24/17 06:00 Vitamin B12 864 pg/mL (239-931) 01/23/17 20:55 Folate > 20.0 ng/mL 01/23/17 20:55 Thyroxine (T4) 8.67 ug/dl (5.5-11.0) 01/24/17 06:00 TSH 3rd Generation 5.16 mIU/ML (0.46-4.68) H 01/24/17 06:00 IgG 786.5 mg/dL (700.0-1600.0) 01/25/17 07:00 IgA 142.1 mg/dL (70.0-400.0) 01/25/17 07:00 IgM 100.0 mg/dL (40.0-230.0) 01/25/17 07:00 IgE 65 kU/L (<ba=083) 01/25/17 07:00 Rheum Arthritis Panel Negative (NEGATIVE) 01/27/17 12:10 Cycl Citrul Peptide IgG <16 Units (<20) 01/27/17 12:38 LONNY Screen Negative (Negative) 01/25/17 07:00 LONNY Titer TEST NOT PERFORMED 01/25/17 07:00 LONNY Titer 2 TEST NOT PERFORMED 01/25/17 07:00 LONNY Pattern TEST NOT PERFORMED 01/25/17 07:00 LONNY Pattern 2 TEST NOT PERFORMED 01/25/17 07:00 RPR Nonreactive (NONREACTIVE) 01/27/17 12:10 Lyme Disease Screen <0.90 index 01/25/17 07:00 Lyme Disease IgG Ab (IFA) Negative (NEGATIVE) 01/23/17 Unknown Lyme Disease IgM Ab Negative (NEGATIVE) 01/23/17 20:55 EBV Capsid Ag IgG Ab 362.00 U/mL H 01/25/17 07:00 EBV Capsid Ag IgM Ab 116.00 U/mL H 01/25/17 07:00 EBV Nuclear Antigen Ab >600.00 U/mL (()) H 01/25/17 07:00 EBV Interpretation See note 01/25/17 07:00 HIV 1&2 Antibody Screen Negative (NEGATIVE) 01/27/17 12:35 - Date & Time of H&P Date of H&P: 01/24/17 Time of H&P: 14:30 Discharge Exam - Head Exam Head Exam: NORMAL INSPECTION Discharge Plan - Discharge Medications Prescriptions: Gabapentin [Neurontin] 100 mg PO BID #30 cap valACYclovir [Valtrex] 500 mg PO BID #28 tab - Follow Up Plan Condition: FAIR Disposition: HOME/ ROUTINE Patient education suggested?: Yes Instructions: Lyme Disease (GEN) Referrals: John Nazario MD [Staff Provider] - Donell Gerber MD [Medical Doctor] -
== END 2017-01-27 16:44 | disposition home or self-care (01) | DRG 866 ==
LOC: H.ER 19:30 → H.ERHOLD 23:04 → H.MEDSURG1 01-24 00:22
PROVIDERS: ADMIT Internal Medicine Pulmonary Disease; ATTEND Internal Medicine Pulmonary Disease
PROC: 3E0234Z Introduction of Serum, Toxoid and Vaccine into Muscle, Percutaneous Approach (ICD-10-PCS; principal; 2017-01-24)
DX: B27.00 Gammaherpesviral mononucleosis without complication (principal); G62.9 Polyneuropathy, unspecified; Z23 Encounter for immunization; D64.9 Anemia, unspecified; E03.9 Hypothyroidism, unspecified; F17.210 Nicotine dependence, cigarettes, uncomplicated